=== PATIENT | male | born 1970 | race Caucasian/White ===

== ENCOUNTER 2022-02-18 14:08 | Outpatient (CLI) | payer OTHER, SELFPAY ==
[2022-02-18 21:35] LABS: Albumin* 4.2 g/dL (3.3-5.0); Chloride* 103 mmol/L (96-114); Sodium* 137 mmol/L (135-149)
[2022-02-18 21:36] LABS: Potassium* 4.6 mmol/L (3.6-5.1)
[2022-02-18 21:37] LABS: Cholesterol* 188 mg/dL (90-199)
[2022-02-18 21:38] LABS: Alanine Aminotransferase* 27 U/L (4-50); Alkaline Phosphatase* 95 U/L (40-150); Aspartate Amino Transferase* 33 U/L (12-35); Bilirubin Total* 0.5 mg/dL (0.1-1.5); Blood Urea Nitrogen* 17 mg/dL (7-30); Calcium* 9.6 mg/dL (8.4-10.6); Carbon Dioxide* 27 mmol/L (20-32); Creatinine* 1.1 mg/dL (0.5-1.5); Estimated Glomerular Filt Rate 81 ml/min; Glucose* 86 mg/dL (60-115); Total Protein* 6.9 g/dL (6.0-8.3); Triglycerides* 155 mg/dL (40-149)
[2022-02-18 21:39] LABS: HDL Cholesterol* 49 mg/dL (>=40); LDL Cholesterol Calculated 108 mg/dL (<100)
== END 2022-02-18 14:09 | disposition home or self-care (01) ==
PROVIDERS: PCP Physician Assistant Medical; Visit Provider Physician Assistant Medical
DX: Z00.00 Encounter for general adult medical examination without abnormal findings (principal); E78.5 Hyperlipidemia, unspecified; I10 Essential (primary) hypertension
CPT/HCPCS: 80053; 80061

== ENCOUNTER 2023-07-17 08:43 | Outpatient (CLI) | payer BC, SELFPAY | END 2023-07-17 08:44 | disposition home or self-care (01) | LOC: NFLDREF 07-19 07:46 | PROVIDERS: PCP Physician Assistant Medical; Referring Provider Physician Assistant Medical; Visit Provider Physician Assistant Medical | DX: E78.5 Hyperlipidemia, unspecified (principal); I10 Essential (primary) hypertension; Z12.5 Encounter for screening for malignant neoplasm of prostate | CPT/HCPCS: 80053; 80061; 84153 ==

== ENCOUNTER 2024-10-18 13:39 | Outpatient (CLI) | payer BC, SELFPAY | END 2024-10-18 13:40 | disposition home or self-care (01) | PROVIDERS: PCP Physician Assistant Medical; Visit Provider Family Medicine | DX: I10 Essential (primary) hypertension (principal); E78.5 Hyperlipidemia, unspecified; Z12.5 Encounter for screening for malignant neoplasm of prostate | CPT/HCPCS: 80048; 80061; G0103 ==